=== PATIENT | male | born 1985 | race Caucasian/White ===

== ENCOUNTER 2020-03-21 19:30 | Observation (INO) | payer OTHER ==
[~2020-03-21] VITALS: Ht 180.3 cm; Wt 73.6 kg
[2020-03-21 19:49] LABS: BASOPHILS ABSOLUTE AUTO 0.04 K/mm3 (0.00-0.23); BASOPHILS PERCENT AUTO 1 % (0-2); EOSINOPHILS ABSOLUTE AUTO 0.06 K/mm3 (0.00-0.68); EOSINOPHILS PERCENT AUTO 1 % (0-6); Hematocrit 45.9 % (37.0-53.0); Hemoglobin 15.1 g/dL (13.5-17.5); IMMATURE GRAN ABSOLUTE AUTO 0.02 K/mm3 (0.00-0.10); IMMATURE GRAN PERCENT AUTO 0 % (0-1); LYMPHOCYTES PERCENT AUTO 42 % (21-46); MONOCYTES ABSOLUTE AUTO 0.31 K/mm3 (0.16-1.47); MONOCYTES PERCENT AUTO 5 % (4-13); Mean Corpuscular HGB 30.8 pg (26.0-34.0); Mean Corpuscular HGB Conc 32.9 g/dL (31.5-36.5); Mean Corpuscular Volume 94 fL (80-100); NEUTROPHILS PERCENT AUTO 51 % (41-73); Platelet Count 280 K/mm3 (150-400); RDW Coefficient Variation 13.6 % (11.7-14.2); RDW Standard Deviation 47.4 fL (35.1-46.3); Red Blood Cell Count 4.91 M/mm3 (4.30-5.90); White Blood Cell Count 6.13 K/mm3 (4.00-11.30)
[2020-03-21 20:06] LABS: Alanine Aminotransfer (ALT/SGP 42 U/L (12-78); Albumin, Blood 4.2 g/dL (3.4-5.0); Albumin/Globulin Ratio 1.2 (0.8-1.8); Alk Phos 86 U/L (50-136); Anion Gap 8 mmol/L (6-16); Aspartate Aminotrans (AST/SGOT 22 U/L (12-37); Bilirubin, Total 0.7 mg/dL (0.1-1.0); Blood Urea Nitrogen 8 mg/dL (8-24); Bun/Creatinine Ratio 10.4 (12.0-20.0); CO2, Blood 22 mmol/L (21-32); Calcium, Blood 8.8 mg/dL (8.5-10.1); Chloride, Blood 110 mmol/L (98-108); Creatinine, Blood 0.77 mg/dL (0.60-1.20); Globulin, Blood 3.5 g/dL (2.2-4.0); Glomerular Filtration Rate >60 (60-); Glucose, Blood 114 mg/dL (70-99); Potassium, Blood 3.6 mmol/L (3.5-5.5); Sodium, Blood 140 mmol/L (136-145); Total Protein, Blood 7.7 g/dL (6.4-8.2)
[2020-03-22 00:31] LABS: CHOL/HDL RATIO 4.5; Cholesterol 231 mg/dL (50-200); HDL Cholesterol 51 mg/dL (>39); LDL/HDL RATIO 2.4; Low Density Lipoprotein Chol 121 mg/dL (0-110); Triglycerides 295 mg/dL (30-140); Very Low Density Lipoprot Chol 59 mg/dL (6-28)
[2020-03-22] MEDS ORDERED: GABA400 PO (02:26)
[2020-03-22] MEDS ORDERED: DIVA500ER PO (02:27)
[2020-03-22] MEDS ORDERED: ZENPEP DR 5,001 EAC1 PO (02:30)
[2020-03-22] MEDS ORDERED: QUET300 PO (02:31)
[2020-03-22] MEDS ORDERED: LEVE500 PO (02:32)
[2020-03-22] MEDS ORDERED: Cymbalta20 MG PO (02:33)
[2020-03-22 05:43] LABS: BASOPHILS ABSOLUTE AUTO 0.03 K/mm3 (0.00-0.23); BASOPHILS PERCENT AUTO 1 % (0-2); EOSINOPHILS ABSOLUTE AUTO 0.09 K/mm3 (0.00-0.68); EOSINOPHILS PERCENT AUTO 2 % (0-6); Hematocrit 41.3 % (37.0-53.0); Hemoglobin 13.1 g/dL (13.5-17.5); IMMATURE GRAN ABSOLUTE AUTO 0.01 K/mm3 (0.00-0.10); IMMATURE GRAN PERCENT AUTO 0 % (0-1); LYMPHOCYTES ABSOLUTE AUTO 3.05 K/mm3 (0.84-5.20); LYMPHOCYTES PERCENT AUTO 55 % (21-46); MONOCYTES ABSOLUTE AUTO 0.44 K/mm3 (0.16-1.47); MONOCYTES PERCENT AUTO 8 % (4-13); Mean Corpuscular HGB 30.5 pg (26.0-34.0); Mean Corpuscular HGB Conc 31.7 g/dL (31.5-36.5); Mean Corpuscular Volume 96 fL (80-100); Mean Platelet Volume 9.2 fL (9.1-12.4); NEUTROPHILS ABSOLUTE AUTO 1.95 K/mm3 (1.96-9.15); NEUTROPHILS PERCENT AUTO 35 % (41-73); Platelet Count 231 K/mm3 (150-400); RDW Coefficient Variation 13.9 % (11.7-14.2); RDW Standard Deviation 49.7 fL (35.1-46.3); White Blood Cell Count 5.57 K/mm3 (4.00-11.30)
--- NOTE | 2020-03-22 05:51 | NUR ---
PATIENT WAS TIRED AND SLEPT AFTER ARRIVING ON FLOOR AND RECEIVING REQUESTED PAIN RELIEF FOR SEVERE ABDOMINAL DISCOMFORT. MEDICATIONS WERE ENTERED USING THE PATIENTS OWN MEDS IN PHARMACY BOTTLES. PATIENT HAS HX OF SEIZURE DISORDER WELL MEDICATION FOR MOOD STABILIZATION THAT ARE LISTED AND HE TAKES REGULARILY. HE IS INDEPENDENT IN ROOM AND ONLY HAS SCORED A 1 ON HIS CIWA SCORING. THE PATIENT HAS BEEN HOMELESS SINCE HE WAS 18 YEARS OLD.
[2020-03-22 06:08] LABS: Alanine Aminotransfer (ALT/SGP 33 U/L (12-78); Albumin, Blood 3.3 g/dL (3.4-5.0); Albumin/Globulin Ratio 1.2 (0.8-1.8); Alk Phos 63 U/L (50-136); Anion Gap 6 mmol/L (6-16); Aspartate Aminotrans (AST/SGOT 16 U/L (12-37); Bilirubin, Total 0.6 mg/dL (0.1-1.0); Blood Urea Nitrogen 10 mg/dL (8-24); Bun/Creatinine Ratio 12.3 (12.0-20.0); CO2, Blood 22 mmol/L (21-32); Calcium, Blood 8.1 mg/dL (8.5-10.1); Chloride, Blood 116 mmol/L (98-108); Creatinine, Blood 0.81 mg/dL (0.60-1.20); Globulin, Blood 2.8 g/dL (2.2-4.0); Glomerular Filtration Rate >60 (60-); Glucose, Blood 81 mg/dL (70-99); Potassium, Blood 4.1 mmol/L (3.5-5.5); Sodium, Blood 144 mmol/L (136-145); Total Protein, Blood 6.1 g/dL (6.4-8.2)
--- NOTE | 2020-03-22 15:54 | NUR ---
PATIENT STATES HE HAD A BAG OF HIS PERSONAL BELONGINGS IN ROOM 336 ON ADMIT. THIS BELONGINGS BAG IS NO WHERE TO BE FOUND BY THIS RN. THIS RN CHECKED WITH SECURITY AND THE ER TO SEE IF THE PATIENT'S BELONGINGS WHERE IN THEIR DEPARTMENT. THE CSR RETAIL RN WHO ADMITTED THE PATIENT STATES SHE SAW THE BAG OF BELONGINGS AT THE BEDSIDE AN DSHE SAID SHE REMEMBERS A JACKET AND CIGARRETTES BEING IN THE BAG. THE PATIENT IS STATING THAT HE IS MISSING A JACKET, PAIR OF PANTS, SHIRT, SHOES, A FAMIYL HEIRLOOM BELT BUCKLE, FOOD STAMPS CARD, AND CIGARRETTES.
[2020-03-22] MEDS ORDERED: HYDMOR2 PO (16:06)
[2020-03-22] MEDS ORDERED: ONDA4 PO (16:06)
--- NOTE | 2020-03-22 16:23 | NUR ---
PATIENT ADVOCATE PRVIDED THE PATIENT WITH SOCKS, UNDERWEAR, SHIRT AND PANTS FOR DISCHARGE. SECURITY IS LOOKING THROUGH VIDEO FOOTAGE FOR PERSONAL BELONGINGS. PATIENT DISCHARGED. IV REMOVED BEFORE DISCHARGE.
--- NOTE | 2020-03-22 16:43 | NUR ---
AN EMAIL WAS SENT TO JAMIE DAMON REGARDING THE PATIENT'S BELONGINGS.
== END 2020-03-22 16:21 | disposition home or self-care (01) ==
LOC: ER 19:30 → MEDS 19:31
PROVIDERS: Physician Assistant; ADMIT Internal Medicine
DX: K85.90 Acute pancreatitis without necrosis or infection, unspecified (principal); K86.1 Other chronic pancreatitis; K86.81 Exocrine pancreatic insufficiency; F17.210 Nicotine dependence, cigarettes, uncomplicated; F10.11 Alcohol abuse, in remission; F32.9 Major depressive disorder, single episode, unspecified; Z88.6 Allergy status to analgesic agent; Z88.5 Allergy status to narcotic agent; Z91.030 Bee allergy status; Z91.012 Allergy to eggs
CPT/HCPCS: 36415; 74176; 80053; 80061; 83690; 85025; 96361; 96372; 96374; 96375; 96376; 99285-25; A9270; G0378; J1170; J1650; J1885; J2405; J3010; J7030